=== PATIENT | female | born 1955 | race Caucasian/White ===

== ENCOUNTER 2018-05-26 11:59 | Observation (INO) ==
--- NOTE | 2018-05-26 12:38 | ED ---
HPI General Chief Complaint: Chest Pain Stated Complaint: Chest pain Time Seen by Provider: 05/26/18 12:27 History of Present Illness HPI narrative: This patient complains of chest pain and pressure. It is across the anterior chest wall both sides. Started 2 hours ago. She was driving when it started. She is not having any pleuritic symptoms or shortness of breath or cough or fever. She has hypertension but denies personal history of cardiac disease. Last stress test was somewhere around 5-7 years ago. Symptom severity is moderate. Symptoms were nonexertional. There was some radiation toward the left arm. No alleviating factors. No exacerbating factors. Related Data Home Medications Medication Instructions Recorded Confirmed alendronate [Fosamax] 70 mg PO QWEEK 05/26/18 05/26/18 estradiol [Vagifem] 10 mcg VAGINAL DAILY 05/26/18 05/26/18 fluticasone [Flonase Allergy 2 spray INTRANASAL DAILY PRN 05/26/18 05/26/18 Relief] metoprolol succinate 50 mg PO DAILY 05/26/18 05/26/18 Allergies Allergy/AdvReac Type Severity Reaction Status Date / Time No Known Allergies Allergy Verified 05/26/18 12:18 Review of Systems ROS: all other systems reviewed are negative [facility] Medical History Medical History HTN (hypertension) (Acute) Osteoporosis (Acute) Seasonal allergies (Acute) Surgical History Surgical History History of dental surgery (Acute) Social History Social History Substance History: No History of Abuse Smoking Status: Never smoker How Often Do You Have a Drink Containing Alcohol: 4 or more times a week Recent Out of Country Travel within the Last 8 Weeks: No Immunization History Tetanus Immunization: Unsure Exam Narrative Exam Narrative: GENERAL: Well-nourished, well-developed patient in no apparent distress. SKIN: Focused skin assessment reveals no rash and nodules. Skin is Warm and dry. HEAD: Atraumatic. Normocephalic. EYES: Pupils equal and round. No scleral icterus. No injection or drainage. ENT: No nasal bleeding or discharge. Mucous membranes pink and moist. NECK: Trachea midline. No JVD. CARDIOVASCULAR: Regular rate and rhythm. No murmur appreciated. RESPIRATORY: No accessory muscle use. Clear to auscultation. Breath sounds equal bilaterally. GASTROINTESTINAL: Abdomen soft, non-tender, nondistended. Hepatic and splenic margins not palpable. MUSCULOSKELETAL: No obvious deformities. No clubbing. No cyanosis. No edema. NEUROLOGICAL: Awake and alert. No obvious cranial nerve deficits. Motor grossly within normal limits. Normal speech. PSYCHIATRIC: Appropriate mood and affect; insight and judgment normal. Course Initial Documented Vital Signs Temperature 98.0 F 05/26/18 12:00 Pulse Rate 63 05/26/18 12:00 Respiratory Rate 18 05/26/18 12:00 Blood Pressure 188/101 H 05/26/18 12:00 Pulse Oximetry 100 05/26/18 12:00 Last Documented Vital Signs Temperature 98.0 F 05/26/18 12:00 Pulse Rate 65 05/26/18 13:15 Respiratory Rate 16 05/26/18 13:15 Blood Pressure 134/75 05/26/18 13:15 Pulse Oximetry 100 05/26/18 13:15 Medical Decision Making MDM Narrative Medical decision making narrative: 62-year-old female complaining of anterior chest pain and pressure for 2 hours. I have ordered cardiac workup to include labs and chest x-ray and EKG and cardiac monitoring. EKG shows sinus rhythm at [address] elevation or ectopy. She has accelerated hypertension of 188 systolic and I am giving her a small dose of clonidine and will reassess. Clonidine did not need to be given. The blood pressure came down to normal on its own. Workup here is negative. She will be a 23-hour observation on telemetry in the chest pain center to rule out cardiac cause of her symptoms. I discussed with the hospitalist who will do this. Medical Screen Exam Complete: Yes Emergency Medical Condition: Yes Differential Diagnosis Differential Diagnosis: Differential diagnosis includes SC, angina, pericarditis , pleurisy, GERD, anxiety. Medical Records Medical records reviewed: Yes I reviewed the patient's medical records. Lab Data Lab results reviewed: Yes I reviewed the patient's lab results. Lab results narrative: Labs are normal Result diagrams: 05/26/18 12:10 05/26/18 12:10 Lab Results 05/26/18 05/26/18 Range/Units 12:10 12:10 CBC w Diff Auto diff final WBC 6.9 (4.0-11.0) th/mm3 RBC 4.28 (4.00-5.30) mil/mm3 Hgb 14.2 (11.6-15.3) gm/dL Hct 41.4 (35.0-46.0) % MCV 96.6 (80.0-100.0) fL MCH 33.3 (27.0-34.0) pg MCHC 34.4 (32.0-36.0) % RDW 12.3 (11.6-17.2) % Plt Count 211 (150-450) th/mm3 MPV 7.7 (7.0-11.0) fL Neut % (Auto) 65.6 (16.0-70.0) % Lymph % (Auto) 21.2 (9.0-44.0) % [place] % (Auto) 10.7 H (0.0-8.0) % Eos % (Auto) 1.9 (0.0-4.0) % Baso % (Auto) 0.6 (0.0-2.0) % Neut # (Auto) 4.6 (1.8-7.7) th/mm3 Lymph # (Auto) 1.5 (1.0-4.8) th/mm3 [place] # (Auto) 0.7 (0.0-0.9) th/mm3 Eos # (Auto) 0.1 (0.0-0.4) th/mm3 Baso # (Auto) 0.0 (0.0-0.2) th/mm3 WBC Differential . Differential Comment . Sodium 134 L (136-145) meq/L Potassium 3.8 (3.5-5.1) meq/L Chloride 99 (98-107) meq/L Carbon Dioxide 27.6 (21.0-32.0) meq/L Anion Gap 7 (5-15) meq/L BUN 13 (7-18) mg/dL Creatinine 0.64 (0.50-1.00) mg/dL Estimated GFR Greater than 89 (>89) mL/min Random Glucose 113 H (74-106) mg/dL Calcium 8.4 L (8.5-10.1) mg/dL Total Bilirubin 0.5 (0.2-1.0) mg/dL AST 25 (15-37) U/L ALT 30 (10-53) U/L Alkaline Phosphatase 86 (45-117) U/L Total Creatine Kinase 58 (26-192) U/L Troponin I Less than 0.02 L (0.02-0.05) ng/mL Total Protein 7.3 (6.4-8.2) g/dL Albumin 3.8 (3.4-5.0) g/dL Imaging Data Attestation: I personally reviewed and interpreted this imaging study as follows : My impression: Chest x-ray is normal Radiologist's impression: Chest X-Ray 05/26/18 12:33 CONCLUSION: The lungs are clear. ECG Data EKG Prior to Arrival: No Attestation: I personally reviewed and interpreted this ECG as follows: Prior ECG tracings: not available for review Interpretation: EKG shows sinus rhythm at 59. MD interval is 153 ms. [place] is normal. No ectopy or ST elevation. Discharge Plan Discharge Disposition Patient Disposition: ED Admit(ED Internal Use Only) Discharge Order Discharge Orders: ED Use Only Admit Order (Routine); Ordered 05/26/18 Ordered By: John White Discharge Details Diagnosis: Chest pain in adult Physicians Team ED Provider: John White Primary Care Provider: NON STAFF,PROVIDER Rxs /Orders / Referrals /Forms Prescriptions: No Action metoprolol succinate 50 mg Tablet Extended Release 24 Hr 50 mg PO DAILY RF: 0 fluticasone [Flonase Allergy Relief] 50 mcg/actuation [place],Suspension 2 spray INTRANASAL DAILY PRN (Reason: allergies) RF: 0 estradiol [Vagifem] 10 mcg Tablet 10 mcg VAGINAL DAILY RF: 0 alendronate [Fosamax] 70 mg Tablet 70 mg PO QWEEK RF: 0 Discharge Instructions Patient Printed Instructions: Chest Pain (ED) Discharge Interventions Interventions: Vital Signs Last Done: 05/26/18 13:15 Status ED Status: With Doctor
[2018-05-26 12:49] LABS: Baso % (Auto) 0.6 % (0.0-2.0); Eos # (Auto) 0.1 th/mm3 (0.0-0.4); Eos % (Auto) 1.9 % (0.0-4.0); Hematocrit 41.4 % (35.0-46.0); Hemoglobin 14.2 gm/dL (11.6-15.3); Lymph # (Auto) 1.5 th/mm3 (1.0-4.8); Lymph % (Auto) 21.2 % (9.0-44.0); Mean Corpuscular HGB Conc 34.4 % (32.0-36.0); Mean Corpuscular Hemoglobin 33.3 pg (27.0-34.0); Mean Corpuscular Volume 96.6 fL (80.0-100.0); Mean Platelet Volume 7.7 fL (7.0-11.0); Mono # (Auto) 0.7 th/mm3 (0.0-0.9); Mono % (Auto) 10.7 % (0.0-8.0); Neut # (Auto) 4.6 th/mm3 (1.8-7.7); Neut % (Auto) 65.6 % (16.0-70.0); Platelet Count 211 th/mm3 (150-450); Red Blood Count 4.28 mil/mm3 (4.00-5.30); Red Cell Distribution Width 12.3 % (11.6-17.2); White Blood Count 6.9 th/mm3 (4.0-11.0)
--- NOTE | 2018-05-26 12:52 | XR ---
EXAM DATE: 05/26/2018 12:47 PM EST AGE/SEX: 62 years / Female INDICATIONS: Chest pain/ pressure today. CLINICAL DATA: This is the patient's initial encounter. Patient reports that signs and symptoms have been present for 1 day and indicates a pain score of 2/10. MEDICAL/SURGICAL HISTORY: Hypertension. Osteoarthritis. None. COMPARISON: No prior exams available for comparison. FINDINGS: A single AP view of the chest demonstrates the lungs to be symmetrically aerated without evidence of mass, infiltrate or effusion. The cardiomediastinal contours are unremarkable. Osseous structures a re intact. CONCLUSION: The lungs are clear. Electronically signed by: Rivera Hanson MD Board Certified Radiologist 05/26/2018 12:50 PM EST
[2018-05-26 12:58] LABS: Chloride 99 meq/L (98-107); Potassium 3.8 meq/L (3.5-5.1); Sodium 134 meq/L (136-145)
[2018-05-26 13:01] LABS: Albumin 3.8 g/dL (3.4-5.0); Anion Gap 7 meq/L (5-15); Blood Urea Nitrogen 13 mg/dL (7-18); Calcium 8.4 mg/dL (8.5-10.1); Carbon Dioxide 27.6 meq/L (21.0-32.0); Glucose,Random 113 mg/dL (74-106)
[2018-05-26 13:04] LABS: Alanine Aminotransferase 30 U/L (10-53); Aspartate Aminotransferase 25 U/L (15-37); Glomerular Filtration Rate Greater Than 89 mL/min (>89)
[2018-05-26 13:06] LABS: Total Protein 7.3 g/dL (6.4-8.2)
[2018-05-26 13:07] VITALS: O2SAT 100
[2018-05-26 13:07] LABS: Alkaline Phosphatase 86 U/L (45-117)
[2018-05-26 13:20] LABS: Creatine Kinase 58 U/L (26-192)
[2018-05-26] MEDS ORDERED: Acetaminophen 500 MG Tablet PO PRN (15:09)
[2018-05-26] MEDS ORDERED: Morphine Inj 4 MG/ML Vial IV.PUSH PRN (15:09)
--- NOTE | 2018-05-26 15:29 | P.HPIM ---
History of Present Illness Primary Care Physician: PROVIDER NON STAFF Chief Complaint: Chest pain History of Present Illness: 62-year-old female with known history of hypertension who presented to the hospital for evaluation of chest pain. Patient states that she was in her normal state of health this morning and had her breakfast and proceeded [place] drive [place] the [place] at approximately 930. Then at 10 AM she started developing a pain in her chest across his anterior part of her chest which she described as 8/10 on a pain scale radiating to her back and into her left arm. She described the pain as a achy pressure type sensation with a crescendo type pain. The patient was concerned about the discomfort so she drove to the hospital for evaluation. The patient was still persistent when she came to the hospital. She denied any nausea, vomiting, shortness of breath, dyspnea. She did wake up this morning with a fogginess/dizziness in her head. On presentation to the emergency department patient was found to have accelerated hypertension. Patient was given clonidine 0.1 mg with improvement of blood pressure. Patient is asymptomatic when she came to the medical floor. It was recommended by ER physician the patient be observed in the chest pain center for further evaluation and management. Review of Systems Review of Systems: all other systems reviewed are negative Cardiovascular: Reports chest pain Neurologic: Reports dizziness PMFSH Medical History Medical History HTN (hypertension) (Acute) Osteoporosis (Acute) Seasonal allergies (Acute) Surgical History Surgical History History of dental surgery (Acute) Social History Social History Substance History: No History of Abuse Second Hand Smoke Exposure: No Smoking Status: Never smoker How Often Do You Have a Drink Containing Alcohol: 4 or more times a week Recent Out of Country Travel within the Last 8 Weeks: No Immunization History Tetanus Immunization: Unsure Medications and Allergies Allergies Allergy/AdvReac Type Severity Reaction Status Date / Time No Known Allergies Allergy Verified 05/26/18 12:18 Home Medications Medication Instructions Recorded Confirmed Type alendronate [Fosamax] 70 mg PO QWEEK 05/26/18 05/26/18 History estradiol [Vagifem] 10 mcg VAGINAL DAILY 05/26/18 05/26/18 History fluticasone [Flonase Allergy 2 spray INTRANASAL DAILY PRN 05/26/18 05/26/18 History Relief] metoprolol succinate 50 mg PO DAILY 05/26/18 05/26/18 History Active Medications: Active Medications Acetaminophen (Tylenol) 500 mg PO Q4H PRN PRN Reason: HEADACHE Hydrocodone Bitart/Acetaminophen ([place] 7.5/325) 1 tab PO Q4H PRN PRN Reason: PAIN SCALE 1 TO 7 Aspirin (Aspirin) 325 mg PO DAILY LUZMA Morphine Sulfate (Morphine Inj) 2 mg IV.PUSH Q4H PRN PRN Reason: PAIN SCALE 8 TO 10 Nitroglycerin (Nitrostat Sl) 0.4 mg SL Q5M PRN PRN Reason: CHEST PAIN Ondansetron HCl (Zofran Inj) 4 mg IV.PUSH Q6H PRN PRN Reason: NAUSEA Sodium Chloride (Ns Flush) 2 ml IV.FLUSH BID LUZMA Sodium Chloride (Ns Flush) 2 ml IV.FLUSH PRN PRN PRN Reason: FLUSH AFTER USING IV ACCESS Physical Exam Vital signs: Vital Signs 05/26/18 12:00 05/26/18 12:10 05/26/18 12:15 Temperature 98.0 F Pulse Rate 63 76 62 Respiratory Rate 18 16 Blood Pressure 188/101 H 176/85 H Pulse Oximetry 100 97 98 05/26/18 12:45 05/26/18 13:15 05/26/18 13:41 Temperature Pulse Rate 56 L 65 65 Respiratory Rate 16 16 Blood Pressure 150/87 H 134/75 Pulse Oximetry 100 100 05/26/18 14:15 Temperature Pulse Rate 57 L Respiratory Rate 16 Blood Pressure 148/84 H Pulse Oximetry 100 Intake & Output 05/25/18 05/26/18 05/26/18 18:59 06:59 18:59 Weight 53.07 kg Other: Date of Last Bowel Movement 05/26/18 Weight On Admission 53.07 kg Narrative: GENERAL: Well-developed, well-nourished, in no acute distress. alert and orientated HEENT: Head is normocephalic without any lesions or masses noted. Facial features are symmetric. Eyes: Pupils equal round reactive to light. Extraocular muscles are intact. Conjunctivae were clear. Oropharyngeal: Pharynx without any erythema edema. Tongue is midline without deviation. Buccal mucosa is moist without any masses or lesions NECK: Supple without any masses. Trachea midline no deviation. No JVD, no bruits are appreciated CARDIAC: Regular rhythm, regular rate. S1/S2 are heard. No murmurs gallops or rubs. LUNGS: Clear to auscultation bilaterally. No wheeze, rhonchi or rales. No use of accessory muscles on inspiration or expiration. ABDOMEN: Soft, nontender. Nondistended. Bowel sounds heard in all 4 quadrants. No organomegaly or masses. Negative rebound, negative guarding EXTREMITIES: No edema, pulses are equal bilaterally. No cyanosis or clubbing NEUROLOGY: Mood and affect appear appropriate. Cranial nerves II through XII grossly intact. Muscle strength 5/5 in upper and lower extremities bilaterally. Deep tendon reflexes are 2+ in upper and lower extremities bilaterally. Results Labs CBC & Chem 7: 05/26/18 12:10 05/26/18 12:10 Imaging Impressions Chest X-Ray 05/26/18 12:33 CONCLUSION: The lungs are clear. Caprini VTE Risk Assessment Caprini VTE Risk Assessment: Moderate/High Risk (score >= 2) Caprini Risk Assessment Model: Point Value = 1 Point Value = 2 Point Value = 3 Point Value = 5 Age 41-60 Minor surgery BMI > 25 kg/m2 Swollen legs Varicose veins or History of unexplained or recurrent spontaneous Oral contraceptives or hormone replacement Sepsis (< 1 month) Serious lung disease, including pneumonia (< 1 month) Abnormal pulmonary function Acute myocardial infarction Congestive heart failure (< 1 month) History of inflammatory bowel disease Medical patient at bed rest Age 61-74 Arthroscopic surgery Major open surgery (> 45 min) Laparoscopic surgery (> 45 min) Malignancy Confined to bed (> 72 hours) Immobilizing plaster cast Central venous access Age >= 75 History of VTE Family history of VTE Factor V Leiden Prothrombin [id number] Lupus anticoagulant Anticardiolipin antibodies Elevated serum homocysteine Heparin-induced thrombocytopenia Other congenital or acquired thrombophilia Stroke (< 1 month) Elective arthroplasty Hip, pelvis, or leg fracture Acute spinal cord injury (< 1 month) Prophylaxis Regimen: Total Risk Factor Score Risk Level Prophylaxis Regimen 0-1 Low Early ambulation 2 Moderate Order ONE of the following: *Sequential Compression Device (SCD) *Heparin 5000 units SQ BID 3-4 Higher Order ONE of the following medications: *Heparin 5000 units SQ TID *Enoxaparin/Lovenox 40 mg SQ daily (WT < 150 kg, CrCl > 30 mL/min) *Enoxaparin/Lovenox 30 mg SQ daily (WT < 150 kg, CrCl > 10-29 mL/min) *Enoxaparin/Lovenox 30 mg SQ BID (WT < 150 kg, CrCl > 30 mL/min) AND/OR *Sequential Compression Device (SCD) 5 or more Highest Order ONE of the following medications: *Heparin 5000 units SQ TID (Preferred with Epidurals) *Enoxaparin/Lovenox 40 mg SQ daily (WT < 150 kg, CrCl > 30 mL/min) *Enoxaparin/Lovenox 30 mg SQ daily (WT < 150 kg, CrCl > 10-29 mL/min) *Enoxaparin/Lovenox 30 mg SQ BID (WT < 150 kg, CrCl > 30 mL/min) AND *Sequential Compression Device (SCD) Assessment and Plan Plan Chest pain, atypical Patient with increased risk factors include age, hypertension Patient has been ruled out for acute coronary event with serial cardiac enzymes that are negative Serial EKGs were reviewed by myself which shows sinus bradycardia without any acute changes Exercise stress test was done and indicated no signs of ischemia Continue aspirin, nitroglycerin as needed, [place]/morphine for pain control Continue monitor telemetry Accelerated hypertension, improved Continue home medications DVT prevention Sequential compression devices Addendum: I have reviewed the H&P by John Rodriguez. I agree with the overall assessment and plan. I have independently evaluated the patient. My modifications/additions are as below: Patient seen, Discussed Condition With: Discussed with patient, nursing staff, Dr. Mendenhall Discharge Planning: Discharge home in stable condition Activity: Ad rakan. Diet: Healthy heart diet Medication per medication reconciliation Follow-up with primary medical doctor in 1 week H&P: Quality VTE Deep Vein Thrombosis/Pulmonary Embolism Present on Admission: No
[2018-05-26 15:59] LABS: Creatine Kinase 50 U/L (26-192)
--- NOTE | 2018-05-26 16:52 | TR ---
Date Performed: 05/26/2018 Time Performed: 16:24:04 DOCTOR: Kacie Ackerman DRUG LIST: CLINICAL HISTORY: CHEST PAIN REASON FOR TEST: REASON FOR ENDING: Completed Protocol OBSERVATION: Chest Pain: None CONCLUSION: Patient tolerated ROBEL protocol with Total Exercise Time=6:41 Maximum MP=540 % Max HR Achieved=97.0% Maximum MT=781/84, Testing stopped secondary to goals acheived. During peak exercis e patient was asymptomatic, slow upsloping ST segments, ST depressions noted in inferior leads. HR an d BP appropriate response to exercise. Recovery period, quick recovery, HR and BP returned to baselin e. COMMENTS: No definitive ischemia
[2018-05-26 17:09] VITALS: BP 177/89; PULSE 56; RESP 20; TEMP 96.4
[2018-05-27] MEDS ORDERED: Aspirin 325 MG Tablet PO SCH (09:00)
--- NOTE | 2018-05-27 22:16 | ECG ---
Date Performed: 05/26/2018 Time Performed: 15:27:27 PTAGE: 62 years EKG: SINUS BRADYCARDIA BORDERLINE ECG PREVIOUS TRACING : 05/26/2018 12.05 Since the previous tracing, no significant change noted DOCTOR: Javier Gee Interpretating Date/Time 05/27/2018 22:13:17
--- NOTE | 2018-05-27 22:27 | ECG ---
Date Performed: 05/26/2018 Time Performed: 12:05:12 PTAGE: 62 years EKG: SINUS BRADYCARDIA BORDERLINE ECG PREVIOUS TRACING : 05/11/2013 15.05 Since the previous tracing, no significant change noted DOCTOR: Javier Gee Interpretating Date/Time 05/27/2018 22:26:09
== END 2018-05-26 17:26 | disposition home or self-care (01) ==
LOC: PHEDA 11:59 → PHED 11:59 → PH3 14:38
PROVIDERS: ADMIT Hospitalist; ATTEND Hospitalist
CPT/HCPCS: 71010; 71045; 80053; 82550; 84484; 85025; 93005; 93017; 99285; G0378